=== PATIENT | male | born 1940 | race Caucasian/White ===

== ENCOUNTER 2018-12-17 19:20 | Inpatient (IN) ==
[2018-12-17 20:29] LABS: URINE SOURCE CLEAN CATCH
[2018-12-17 20:37] LABS: BASO# 0.01 X1000 (0.0-0.2); BASO% 0.1 % (0.0-0.8); EOS# 0.14 X1000 (0.0-0.7); EOS% 1.9 % (0.0-10.0); HEMATOCRIT 34.9 % (42.0-52.0); HEMOGLOBIN 11.8 g/dL (14.0-18.0); IMM GRAN# 0.02 X1000 (0.0-0.04); IMM GRAN% 0.3 % (0.0-0.5); LYMPH% 16.3 % (20.5-51.1); MCH 34.8 PG (27-31); MCHC 33.8 g/dL (33-37); MCV 102.9 FL (81-99); MONO# 0.52 X1000 (0.11-0.59); MONO% 7.1 % (1.7-9.3); MPV 9.6 FL (7.4-10.4); NEUT# 5.46 X1000 (1.4-6.5); NEUT% 74.3 % (42.2-75.2); PLT 143 X1000 (130-400); RBC 3.39 XMIL (4.7-6.1); RDW 15.7 % (11.5-14.5); WBC 7.35 X1000 (4.8-10.8)
[2018-12-17 20:39] LABS: BILIRUBIN URINE NEGATIVE (NEGATIVE); BLOOD URINE NEGATIVE (NEGATIVE); COLOR YELLOW; GLUCOSE URINE NEGATIVE (NEGATIVE); KETONE URINE NEGATIVE (NEGATIVE); LEUKOCYTES URINE NEGATIVE (NEGATIVE); NITRITE URINE NEGATIVE (NEGATIVE); PH URINE 5.5; PROTEIN URINE 30 mg/dL (NEGATIVE); SP GRAVITY URINE 1.008; TURBIDITY URINE CLEAR (CLEAR); UR EPITHELIAL CELLS <10 /HPF (<10); URINE BACTERIA NEGATIVE /HPF; URINE RBC <10 /HPF (<10); URINE WBC <10 /HPF (<10); UROBILINOGEN URINE NORMAL (NORMAL)
[2018-12-17 20:52] LABS: POTASSIUM 5.3 mmol/L (3.5-5.1)
[2018-12-17 20:53] LABS: ALB/GLOB RATIO 1.3; ALBUMIN 4.3 g/dL (3.5-5.0); CALCIUM 9.1 mg/dL (8.8-10.2); CREATININE 1.3 mg/dL (0.7-1.2); TOTAL BILIRUBIN 0.39 mg/dL (0.20-1.00); TOTAL PROTEIN 7.7 g/dL (6.3-8.3)
--- NOTE | 2018-12-18 00:05 | PROVIDER DOCUMENTATION ---
This chart was entered by Jennifer Andrade Scribe, acting as scribe for Renu Francois MD. HPI-Musculoskeletal Pain/Inj - GENERAL Chief Complaint: Weakness Stated Complaint: EXTREMITY PAIN Time Seen by Provider: 12/17/18 22:10 Source: patient, family - HX OF PRESENT ILLNESS-MUSKULOSKELTAL Nature of Presenting Problem: 78 yom presents to er w/family at bedside w/cc weakness in bilat legs starting yest evening. pt family sts pt went to get up out of chair from seated position and had trouble getting up. During the day today was able to ambulate well but then tonight, pt had to have help getting up off toilet. pt sts weakness occurs in evening time. pt fam sts pt has had vascular studies done every 6 months at [facility], last study sts blood flow adequate. pt has also had radiofrequency ablasions done in bilat knees for arthritis related knee pain. pt denies ten to palp, headache and fall. no numbness or tingling no arm weaknes, no speech changes, no facial droop Onset/Duration: other (yest evening) Timing: still present - FALL INJURY Location of Pain/Injury: reports: none Review of Systems - Adult - REVIEW OF SYSTEMS - ADULT Constitutional: reports: no symptoms reported. denies: chills, fever, fatique Eyes: reports: no symptoms reported Ears, Nose, Mouth & Throat: reports: no symptoms reported Cardiovascular: reports: no symptoms reported Respiratory: reports: no symptoms reported Gastrointestinal: reports: no symptoms reported Genitourinary: reports: no symptoms reported Musculoskeletal: reports: see HPI, muscle weakness (bilat legs). denies: back pain, frequent leg cramps, neck pain Integumentary: reports: no symptoms reported Neurological: reports: no symptoms reported Psychiatric: reports: no symptoms reported Endocrine: reports: no symptoms reported Hematologic/Lymphatic: reports: no symptoms reported Allergic/Immunologic: reports: no symptoms reported All Other Systems: Reviewed and Negative Past History - Adult - PAST MEDICAL HISTORY-ADULT Review of Records: reports: Old Records Reviewed, Nursing Assessment Review, Medications Reviewed, Social history reviewed & non-contributory. Major Childhood Illnesses: reports: denies history Cardiovascular: reports: hyperlipidemia, HI Respiratory: reports: denies history Gastrointestinal: reports: GERD Obstetrical/Gynecological: reports: denies history Genitourinary: reports: denies history Musculoskeletal: reports: denies history Neurological: reports: denies history Endocrine/Immune: reports: Diabetes Other Conditions: reports: denies history - PRIOR SURGERIES/PROCEDURES Surgical/Procedure History: reports: appendectomy, cardiac stent - IMMUNIZATION STATUS Childhood Immunizations: See Nurse Assessment Flu Vaccine: See Nurse Assessment - FAMILY HISTORY Family History: reviewed, not pertinent - SOCIAL HISTORY Smoking: non-smoker Substance Use: alcohol Alcohol Use Frequency: occasionally Physical Exam-Injury Related - Physical Exam-Injury Related Initial Vital Signs Reviewed: Yes General Appearance: appears well, alert, no apparent distress Immobilization?: negative: backboard, C-collar Eyes: PERRL/EOMI, pink conjunctivae Head, Ears, Nose, Mouth & Throat: normocephalic/atraumatic, moist mucous membranes, normal ENT inspection Neck: non-tender, full range of motion, supple, normal inspection Respiratory: chest non-tender, lungs clear, normal breath sounds Cardiovascular: normal peripheral pulses, regular rate, rhythm Chest/Breast: deferred Peripheral Pulses: radial (R): 2+, radial (L): 2+ Abdominal Exam: normal bowel sounds, non tender, soft Male Genitalia: deferred Rectal Exam: deferred Hemoccult Exam: deferred Lymphatic: no adenopathy Back Exam: no CVA tenderness, no vertebral tenderness, other (ten to palp SI joint left side). negative: normal inspection, CVA tenderness, decreased range of motion, ecchymosis Extremity: normal range of motion, normal inspection, no pedal edema, no calf tenderness, normal capillary refill, other (NVI bilat legs). 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 negative: motor weakness, sensory deficit Psych/Mental Status: normal mood/affect, normal thought content, normal thought process, oriented x 3 - Glascow Coma Score Best Eye Response (Freeman): (4) open spontaneously Best Verbal Response (Freeman): (5) oriented Best Motor Response (Zhang): (6) obeys commands Zhang Total: 15 Progress - PLAN OF CARE/RESULTS Progress/Plan/Lab Results: Vital Signs - 8 hr 12/17/18 19:36 Temperature 98.3 F Pulse Rate 60 Respiratory Rate 20 Blood Pressure 168/69 O2 Sat by Pulse Oximetry 94 L Laboratory Results - last 24 hr 12/17/18 12/17/18 12/17/18 20:12 20:15 20:15 WBC 7.35 RBC 3.39 L Hgb 11.8 L Hct 34.9 L MCV 102.9 H MCH 34.8 H MCHC 33.8 RDW Std Deviation 15.7 H Plt Count 143 MPV 9.6 Immature Gran % (Auto) 0.3 Neut % (Auto) 74.3 Lymph % (Auto) 16.3 L Rawlins % (Auto) 7.1 Eos % (Auto) 1.9 Baso % (Auto) 0.1 Immature Gran # (Auto) 0.02 Neut # (Auto) 5.46 Lymph # (Auto) 1.20 Rawlins # (Auto) 0.52 Eos # (Auto) 0.14 Baso # (Auto) 0.01 Sodium 140 Potassium 5.3 H Chloride 104 Carbon Dioxide 24 L Anion Gap 12 BUN 20 Creatinine 1.3 H Estimated GFR/1.73 m2 53 BUN/Creatinine Ratio 15 Glucose 140 H POC Glucose 136 H Calculated Osmolality 284 Calcium 9.1 Total Bilirubin 0.39 AST 20 ALT 23 Alkaline Phosphatase 98 Troponin T Total Protein 7.7 Albumin 4.3 Globulin 3.4 Albumin/Globulin Ratio 1.3 Urine Source Urine Color Urine Turbidity Urine pH Ur Specific [place] Urine Protein Ur Glucose (Stick) Ur Ketones (Stick) Urine Blood Urine Nitrite Urine Bilirubin Urobilinogen Dipstick Urine Leukocytes Urine WBC (Auto) Urine RBC (Auto) U Epithel Cells (Auto) Urine Bacteria (Auto) 12/17/18 12/17/18 20:15 20:15 WBC RBC Hgb Hct MCV MCH MCHC RDW Std Deviation Plt Count MPV Immature Gran % (Auto) Neut % (Auto) Lymph % (Auto) [place] % (Auto) Eos % (Auto) Baso % (Auto) Immature Gran # (Auto) Neut # (Auto) Lymph # (Auto) Rawl[place] # (Auto) Eos # (Auto) Baso # (Auto) Sodium Potassium Chloride Carbon Dioxide Anion Gap BUN Creatinine Estimated GFR/1.73 m2 BUN/Creatinine Ratio Glucose POC Glucose Calculated Osmolality Calcium Total Bilirubin AST ALT Alkaline Phosphatase Troponin T < 0.010 Total Protein Albumin Globulin Albumin/Globulin Ratio Urine Source CLEAN CATCH Urine Color YELLOW Urine Turbidity CLEAR Urine pH 5.5 Ur Specific [place] 1.008 Urine Protein 30 A Ur Glucose (Stick) NEGATIVE Ur Ketones (Stick) NEGATIVE Urine Blood NEGATIVE Urine Nitrite NEGATIVE Urine Bilirubin NEGATIVE Urobilinogen Dipstick NORMAL Urine Leukocytes NEGATIVE Urine WBC (Auto) <10 Urine RBC (Auto) <10 U Epithel Cells (Auto) <10 Urine Bacteria (Auto) NEGATIVE Orders Category Date Time Status CT HEAD W/O CONTRAST [CT] Stat Exams 12/17/18 22:[address] LUMBAR SPINE W/O CONTRAST [CT] Stat Exams 12/17/18 22:00 Taken CBC WITH DIFF [HEME] Stat Lab 12/17/18 20:15 Completed COMPREHENSIVE METABOLIC PANEL [CHEM] Stat Lab 12/17/18 20:15 Completed TROPONIN T Stat Lab 12/17/18 20:15 Completed UA NIMS W/REFLEX CULT [URINALYSIS] Stat Lab 12/17/18 20:15 Completed EKG [EKG] Stat Ther 12/17/18 20:06 Ordered Leg weakness without focal neurological findings on exam will further evaluate for cause of weakness including but not limited to cva, tia, uti, acs, deh ydration, electrolyte imbalance, spinal cord compression, infectious process Result Diagrams: 12/17/18 20:15 12/17/18 20:15 - REASSESSMENT Reassessment #1 Status: other (ED work up largely unremarkable for acute causes of weakness. Attempted trial of ambulation in the ED and pt unable to ambulate and very unsteady even with standing. Will admit for further evaluation and treatment. Discussed case with Dr. Gomez, Hospitalist, who will see and admit pt.) - EKG 1 Time of EKG reading by physician:: 20:20 EKG Read and Signed by:: Renu Francois EKG Interpretation (*Must complete 3 of following elements*): Abnormal Rate: 77 Rhythm: Atrial paced rhythm w/prolonged av conduction QRS: RBB IN Interval: prolonged ST Wave: normal Departure - Departure Date of Disposition Decision: 12/17/18 Time of Disposition Decision: 23:51 DIAGNOSIS: Weakness Disposition: ADMITTED INPATIENT 09 Certified Medical Emergency: Emergent Condition: Fair Referrals and Follow-Ups: Graham Nuñez MD [Primary Care Provider] - - Critical Care Note This patient required my direct & personal management of CC.: No Attestation - Physician/ SEBAS Attestation Patient care was provided by Advanced Practice Provider:: No The physician spent face to face time with patient:: Yes Advanced Practice Provider documentation review:: Supervising physician onsite and consulted in the evaluation and care of this patient. The physician did have a face to face encounter with the patient. This chart was documented by the indicated scribe, (Jennifer Andrade Scribe) and accurately reflects the services I performed and decisions made by me, Renu Francois MD, as attested by the provider's signature.
--- NOTE | 2018-12-18 01:07 | HISTORY AND PHYSICAL ---
PRIMARY CARE PHYSICIAN: Dr. Nuñez. CHIEF COMPLAINT: Weakness, could not ambulate. HISTORY OF PRESENTING ILLNESS: The patient is a 78-year-old male with a history of diabetes mellitus type 2, hypertension, DVT, coronary disease and hyperlipidemia who had presented to the emergency department with several days history of worsening weakness such that he could not ambulate. The patient states that he was not able to get out of his chair and put any weight on his legs. He was evaluated in the emergency department, his workups so far have been negative; however, due to his presenting symptoms we will place him for observation for further evaluation and management. At the time of my examination the patient denied any headache, fever, chills, chest pain, shortness of breath, hemoptysis or any weight changes, but complained of lower extremity weakness. PAST MEDICAL HISTORY: Includes diabetes mellitus type 2, hypertension, left DVT, coronary disease, peripheral arterial disease, hyperlipidemia. PAST SURGICAL HISTORY: Pacemaker, coronary stent, cataract surgery. ALLERGIES: No known drug allergies. CURRENT MEDICATIONS: Include Norvasc 5 mg p.o. daily, carvedilol 3.125 mg p.o. b.i.d., metformin 500 mg p.o. daily, pravastatin 40 mg p.o. daily, ramipril 5 mg p.o. daily, warfarin 5 mg p.o. at bedtime. SOCIAL HISTORY: He is a former smoker. No history of alcohol or illicit drug use. FAMILY HISTORY: Positive for coronary disease in father. REVIEW OF SYSTEMS: Fourteen point review of system is as in the HPI. Other systems negative. PHYSICAL EXAMINATION: GENERAL: Cooperative friendly male. He is resting more comfortably now. VITAL SIGNS: Temperature 98.3 degrees, pulse 60, respirations 20, blood pressure 168/69. HEENT: Atraumatic and normocephalic. Extraocular movements intact. PERRLA. NECK: Supple. CHEST: Clear to auscultation. CARDIOVASCULAR: Regular rate and rhythm. ABDOMEN: Soft. Positive bowel sounds. EXTREMITIES: With +1 edema. NEUROLOGIC: He is awake, alert and oriented x3. Strength is 5/5 in all extremities. Speech is intact. GENITOURINARY: No bladder distention. SKIN: Warm. LABORATORIES AND STUDIES: WBC 7.35, hemoglobin 11.8, hematocrit 34.9, platelets 143,000. Sodium 140, potassium 5.3, chloride 104, CO2 is 24, BUN is 20, creatinine is 1.3, glucose 140. ASSESSMENT: This is a 78-year-old male with a history of diabetes mellitus type 2, hypertension, coronary disease, deep venous thrombosis and hyperlipidemia who presented to the emergency department with several days history of worsening weakness. He was evaluated in the emergency department and his workup so far has been negative; however, due to his presenting symptoms we will place him for observation for further evaluation and management. 1. Generalized weakness. 2. Diabetes mellitus type 2. 3. Hypertension. 4. Hyperlipidemia. PLAN: 1. We will admit the patient to the medical floor with telemetry. 2. Continue with supportive treatment. We will give the patient adequate pain control. 3. We will consult Physical Therapy. 4. Put the patient on glycemic protocol with sliding scale insulin regimen. 5. Monitor blood pressure. Resume antihypertensive agent. 6. Restart his other home medications. 7. The patient is already on Coumadin and that will suffice for DVT prophylaxis. 8. We will continue to follow, reassess and make further recommendation based on the patient's clinical course. cc: Dash Gomez MD
[2018-12-18 05:36] LABS: INR 1.62; PROTIME 20.5 Seconds (11.0-16.0)
--- NOTE | 2018-12-18 05:39 | Diag Imaging Result Doc PS360 ---
EXAM: CT HEAD W/O CONTRAST HISTORY: BL LE weakness TECHNIQUE: CT head without contrast COMPARISON: None. FINDINGS: No parenchymal hemorrhage. No epidural or subdural hematoma. No subarachnoid hemorrhage. Mild atrophy with chronic microvascular ischemic changes. No mass identified on this noncontrasted exam. No hydrocephalus. No skull fracture. IMPRESSION: 1.No hemorrhage 2.Mild atrophy with mild chronic microvascular ischemic changes 3.A preliminary report was given at 11:31 PM on 12/17/2018 This exam was performed using automated exposure control, adjustment of mA or kV according to patient size, and/or use of iterative reconstruction technique. Electronically signed by Lucien Villa 12/18/2018 5:36 AM
--- NOTE | 2018-12-18 05:45 | Diag Imaging Result Doc PS360 ---
EXAM : CT LUMBAR SPINE W/O CONTRAST HISTORY: back pain with leg weakness TECHNIQUE: CT lumbar spine without contrast COMPARISON: None. FINDINGS: Mild scoliosis in the mid lumbar spine. Mild compression fracture to the L3 vertebra. No other compression fracture. No subluxation. The age of the L3 compression is indeterminate. Bulging disc and facet hypertrophy results in moderate spinal stenosis at L2-3. Prominent degenerative bone spurs with a vacuum disc. Bulging disc and facet hypertrophy results in moderate spinal stenosis at L3-4. Prominent degenerative bone spurs with a vacuum disc. Mild bulging discs and facet hypertrophy results in [id number] spinal stenosis at L4-5. There is disc space narrowing and a vacuum disc at L5-S1. No disc herniation identified. There is a 4.0 cm abdominal aortic aneurysm with a short aortic iliac graft. IMPRESSION: Mild age-indeterminate L3 compression fracture. Multilevel degenerative changes and bulging discs as described. A preliminary report was given at 11:27 PM 12/17/2018 This exam was performed using automated exposure control, adjustment of mA or kV according to patient size, and/or use of iterative reconstruction technique. Electronically signed by Lucien Villa 12/18/2018 5:42 AM
[2018-12-18] MEDS: HUMULIN R SUBQ SCH ×4 (06:55→23:26)
--- NOTE | 2018-12-18 07:06 | EKG Report ---
Test Performed on : 12/17/2018 8:19:46 PM Test Reason : WEAKNESS Blood Pressure : / mmHG Vent. Rate : 077 BPM Atrial Rate : 076 BPM P-R Int : 320 ms QRS Dur : 136 ms QT Int : 386 ms P-R-T Axes : 000 -27 023 degrees QTc Int : 436 ms Atrial-paced rhythm with prolonged AV conduction Right bundle branch block Abnormal ECG When compared with ECG of 24-SEP-2010 20:28, Electronic atrial pacemaker has replaced Sinus rhythm. Nonspecific T wave abnormality now evident in Anterior leads Unconfirmed Result
[2018-12-18] MEDS: COUMADIN PO SCH (23:25)
[2018-12-18] MEDS: TYLENOL PO SCH (23:25)
[2018-12-18] MEDS: GLUCOPHAGE XR PO SCH (23:25)
[2018-12-18] MEDS: PRAVACHOL PO SCH (23:25)
[2018-12-18] MEDS: COREG PO SCH (23:25)
[2018-12-19] MEDS: HUMULIN R SUBQ SCH ×4 (06:14→21:25)
[2018-12-19 07:53] LABS: BASO# 0.01 X1000 (0.0-0.2); BASO% 0.2 % (0.0-0.8); EOS# 0.22 X1000 (0.0-0.7); EOS% 3.7 % (0.0-10.0); HEMATOCRIT 38.7 % (42.0-52.0); HEMOGLOBIN 13.2 g/dL (14.0-18.0); LYMPH# 1.25 X1000 (1.2-3.4); LYMPH% 20.9 % (20.5-51.1); MCH 35.1 PG (27-31); MCHC 34.1 g/dL (33-37); MCV 102.9 FL (81-99); MONO# 0.73 X1000 (0.11-0.59); MONO% 12.2 % (1.7-9.3); MPV 9.8 FL (7.4-10.4); NEUT# 3.78 X1000 (1.4-6.5); PLT 146 X1000 (130-400); RBC 3.76 XMIL (4.7-6.1); RDW 15.6 % (11.5-14.5); WBC 5.99 X1000 (4.8-10.8)
[2018-12-19 08:05] LABS: INR 1.21; PROTIME 16.3 Seconds (11.0-16.0)
[2018-12-19 08:14] LABS: CALCIUM 9.3 mg/dL (8.8-10.2); CREATININE 1.3 mg/dL (0.7-1.2); POTASSIUM 4.9 mmol/L (3.5-5.1)
[2018-12-19] MEDS: ALTACE PO SCH (10:09)
[2018-12-19] MEDS: NORVASC PO SCH (10:09)
[2018-12-19] MEDS: COREG PO SCH ×2 (10:09→21:24)
[2018-12-19] MEDS: GLUCOPHAGE XR PO SCH ×2 (10:09→21:25)
[2018-12-19] MEDS: TYLENOL PO SCH (21:25)
[2018-12-19] MEDS: COUMADIN PO SCH (21:25)
[2018-12-19] MEDS: PRAVACHOL PO SCH (21:25)
--- NOTE | 2018-12-19 22:28 | PROGRESS NOTE ---
DATE: 12/19/2018 SUBJECTIVE: A 78-year-old, white male, admitted to the hospital yesterday on 12/18 with sudden weakness of legs, unable to walk, falling down. He is very poor historian. The patient had a workup done. Family was at bedside. I do not see any definitive weakness. The patient has a CT of head, CT of the lumbar spine. PHYSICAL EXAMINATION: Vital Signs: Temperature is 98.2, pulse 96, blood pressure is 131 x 55, 94% on room air. I's and O's -1.785. HEENT: He is drooling saliva Chest: Persistent cough. Chest is clear. Heart: Sounds are regular. Abdomen: Belly is soft, nontender. Extremities: Decreased pulses in both feet. No signs of gangrene. Chronic venous stasis changes noted in both legs. Neurologic: Definitely no neurological deficits noted. INVESTIGATIONS: CBC: White cell count 5.9, hematocrit 38, platelets 146. PT 16, INR 1.2. Sodium 139, potassium 4.9, chloride 101, BUN 20, creatinine 1.3, glucose 223. CK was normal. Vitamin D 27.1. Urinalysis is clear. CT lumbar spine, L3 compression fracture, bulging disk, 4.8 cm abdominal aortic aneurysm with aortoiliac graft. EKG right bundle branch block, normal sinus. ASSESSMENT AND PLAN: 1. Weakness in both legs. Not able to ambulate. No obvious deficits. He has history of peripheral arterial disease on the right leg. We will repeat the arterial flow studies. 2. Abdominal aortic aneurysm 4.0 cm. 3. Vitamin D deficiency on replacement therapy. 4. Coronary artery disease, stable. 5. Type 2 diabetes. Metformin 500 p.o. b.i.d. 6. Hyperlipidemia. Pravachol 40 daily. 7. Paroxysmal atrial fibrillation, status post cardioversion; status post pacemaker in 2018, on Cordarone therapy and Coumadin. 8. Chronic deep vein thrombosis, on Coumadin 5 mg daily. 9. History of osteoarthritis on the right knee. 10. Deafness on hearing aids. 11. Chronic venous stasis dermatitis on compression stockings. 12. History of peripheral arterial disease with occluded iliac stents on the right side. We will follow up on LIZZIE. Discussed with the family at bedside. LEVEL OF DOCUMENTATION: 35 minutes. cc: Javi Nuñez MD
[2018-12-20] MEDS: HUMULIN R SUBQ SCH ×4 (06:18→21:35)
[2018-12-20 07:42] LABS: INR 1.27; PROTIME 16.9 Seconds (11.0-16.0)
[2018-12-20 07:54] LABS: HEMOGLOBIN A1C 5.8 % (4.8-6.0)
[2018-12-20 07:57] LABS: CALCIUM 9.2 mg/dL (8.8-10.2); CREATININE 1.4 mg/dL (0.7-1.2); POTASSIUM 4.7 mmol/L (3.5-5.1)
[2018-12-20 08:13] LABS: FREE T4 1.6 ng/dL (0.93-1.70); TSH 0.71 uIUmL (0.27-4.20)
[2018-12-20] MEDS: NORVASC PO SCH (10:14)
[2018-12-20] MEDS: COREG PO SCH ×2 (10:15→21:35)
[2018-12-20] MEDS: CORDARONE PO SCH (10:15)
[2018-12-20] MEDS: ALTACE PO SCH (10:16)
[2018-12-20] MEDS: GLUCOPHAGE XR PO SCH (10:20)
[2018-12-20] MEDS: NS 1,000 ML IV SCH ×2 (10:29→21:35)
--- NOTE | 2018-12-20 13:41 | Diag Imaging Result Doc PS360 ---
CT ANGIOGRAM AORTA W/RUNOFF - 12/20/2018 INDICATION: PAD TECHNIQUE: Axial CT images were obtained after administering intravenous contrast. Three-dimensional angiographic images were generated. COMPARISON: None FINDINGS: There is advanced COPD in the lung bases. There is severe diverticulosis all throughout the colon. There is a fusiform distal abdominal aortic aneurysm measuring 3.8 x 3.8 cm. There are kissing stents in the common iliac arteries. On the right side this is occluded along with the common iliac artery. On the left side this is patent. On the right side, there is occlusion of the common iliac artery. There is reconstitution of the internal and external iliac arteries likely through lumbosacral collaterals. The femoral artery systems are patent. The popliteal artery is patent. There is heavy vascular calcification of the posterior tibial artery which is stenotic by about 40%. Nevertheless there is a three-vessel runoff to the foot. There is a moderately large right knee joint effusion. On the left side, the common, internal and external iliac arteries are patent. The femoral arteries are patent. The popliteal artery is patent. There is heavy calcified vascular disease of the posterior tibial artery which is moderately narrowed. There is a three-vessel runoff to the left foot. There is a moderate left knee joint effusion as well. There is indeterminate vascular calcification throughout the veins of the lower extremities as well as the iliac veins, mainly the left external iliac vein. The IVC is extremely collapsed. Vascular calcification within veins is very unusual and likely to represent chronic deep venous thrombosis. IMPRESSION: 1. There are kissing stents in the aortic bifurcation. On the right side, the stent is completely occluded. There is collateral filling of the internal and external iliac arteries and flow to the right foot. 2. Significant vascular disease of both posterior tibial arteries, otherwise very little disease of the legs and calves. 3. There is probably diffuse chronic deep venous thrombosis of all the major veins of the lower extremities and possibly the pelvis as well. This exam was performed using automated exposure control, adjustment of mA or kV according to patient size, and/or use of iterative reconstruction technique Electronically signed by Rubin Daniels 12/20/2018 1:38 PM
[2018-12-20] MEDS: VITAMIN D PO SCH ×2 (14:59→15:00)
--- NOTE | 2018-12-20 20:14 | VASCULAR LAB ---
PROCEDURE NAME: Arterial Bilateral Legs - 12/19/2018 REQUESTING PHYSICIAN: Nereyda Nuñez MD SIGNAL TIMER: Padmini. INDICATIONS: Pain in bilateral lower extremities, right worse than left. FINDINGS: Segmental pressures are as follows: Right brachial 168, left 155, right proximal thigh 98, left 187, right distal thigh 105, left 166, right popliteal 129, left 173, right dorsalis pedis 267, left 288, right posterior tibial 62, left 288, right great toe 68, left 117, right LIZZIE 1.59, left 1.70, right TBI 0.40, left 0.70. Waveform analysis: Waveforms appear to be almost monophasic even starting in the level of the high proximal thigh on the right side, but there is at least some pulsatility noted to the toes. The left side is intact to the level of toes. INTERPRETATION: Likely proximal disease either common iliac or external iliac on the right side. The patient's ABIs are likely falsely elevated. The patient would benefit from a CT angiography to delineate the anatomy better given the proximal disease. cc: MD Javi Ibanez MD
--- NOTE | 2018-12-20 20:52 | PROGRESS NOTE ---
DATE: 12/20/2018 SUBJECTIVE: The patient is still with some weakness mostly on the right side, decreased pulses and no other symptoms. OBJECTIVE: Vital signs: Temperature is 97 degrees, pulse 62, blood pressure 140/54. HEENT Exam: Within normal limits. Neck: Supple. Chest: Clear. Cardiovascular: Heart sounds are regular. Abdomen: Belly is soft, nontender. No neurological deficits. DIAGNOSTICS: Arterial flow studies are looked at. There is high-grade obstruction. LIZZIE is high. PT is 16, INR 1.2, creatinine 1.4. SMA 7 is normal. Vitamin D is still low. Thyroid function tests were normal. ASSESSMENT AND PLAN: 1. Bilateral leg weakness, unable to walk. The right is worse than the left side consistent with occluded stent and CT arteriogram with runoff. Will get gentle IV fluids and also check the CK. 2. Paroxysmal atrial fibrillation on Cordarone and warfarin. 3. Hypertension on amlodipine and Coreg. 4. Vitamin D deficiency on replacement. 5. Vitamin B12 deficiency on replacement. 6. Type 2 diabetes on metformin. 7. Hyperlipidemia on Pravachol 8. Consultation with Dr. Pal about the peripheral artery disease in the right leg. Continue the physical therapy. Discussed with the family at bedside. Apparently, patient had workup done in [place]. I do not have the details. Anyhow, we will ask for Dr. Pal's opinion. LEVEL OF DOCUMENTATION: 25 minutes. cc: Javi Nuñez MD
[2018-12-20] MEDS: TYLENOL PO SCH (21:35)
[2018-12-20] MEDS: PRAVACHOL PO SCH (21:35)
[2018-12-20] MEDS: COUMADIN PO SCH (21:35)
[2018-12-21] MEDS: HUMULIN R SUBQ SCH ×4 (06:53→20:38)
[2018-12-21] MEDS: ALTACE PO SCH (10:50)
[2018-12-21] MEDS: VITAMIN D PO SCH (10:51)
[2018-12-21] MEDS: CORDARONE PO SCH (10:52)
[2018-12-21] MEDS: COREG PO SCH ×2 (10:52→20:37)
[2018-12-21] MEDS: NORVASC PO SCH (10:53)
[2018-12-21] MEDS: NS 1,000 ML IV SCH (10:53)
--- NOTE | 2018-12-21 13:14 | PROGRESS NOTE ---
DATE: 12/21/2018 SUBJECTIVE: The patient says he still gets some pain in his legs, especially his right leg. We know that he has some blockage of the stent in his femoral artery. OBJECTIVE: Vital Signs: Blood pressure 165/57, respirations 16, pulse 61, temperature 97.9 degrees Fahrenheit. HEENT: Normocephalic. EOMs intact. PERRLA. Throat clear. Lungs: Clear to auscultation and percussion without rhonchi, rales, or wheezes. Heart: Regular rate and rhythm without murmurs, gallops, friction rubs. Abdomen: Soft. Active bowel sounds. No organomegaly or tenderness. Cannot really feel pulses in his feet. ASSESSMENT: Peripheral vascular disease. PLAN: Continue support. Dr. Pal, vascular surgeon, will see him. cc: MD Javi Dunn Jr, MD
[2018-12-21] MEDS: COUMADIN PO SCH (20:38)
[2018-12-21] MEDS: PRAVACHOL PO SCH (20:39)
[2018-12-21] MEDS: TYLENOL PO SCH (20:39)
[2018-12-22] MEDS: NS 1,000 ML IV SCH ×2 (00:43→11:01)
[2018-12-22] MEDS: HUMULIN R SUBQ SCH ×4 (06:49→21:52)
[2018-12-22] MEDS: ALTACE PO SCH (11:00)
[2018-12-22] MEDS: COREG PO SCH ×2 (11:01→21:52)
[2018-12-22] MEDS: NORVASC PO SCH (11:01)
[2018-12-22] MEDS: VITAMIN D PO SCH (11:01)
[2018-12-22] MEDS: CORDARONE PO SCH (11:01)
--- NOTE | 2018-12-22 11:39 | PROGRESS NOTE ---
DATE: 12/22/2018 SUBJECTIVE: The patient says he feels about the same. He has some aching in his right leg mostly. OBJECTIVE: Vital Signs: Blood pressure 132/53, respirations 18, pulse 65, temperature 98 degrees Fahrenheit, oxygen saturation 96% on room air. HEENT: Normocephalic. EOMs intact. PERRLA. Throat clear. Lungs: Clear to auscultation and percussion without rhonchi, rales, or wheezes. Heart: Regular rate and rhythm without murmurs, gallops, friction rubs. He has a history of atrial fibrillation, but he certainly sounds regular right this minute. Abdomen: Soft, active bowel sounds. No organomegaly or tenderness. Decreased pulses in lower extremities. The patient does have occluded stent to femoral artery on the right to be evaluated by Surgery. ASSESSMENT: Peripheral vascular disease with occlusion right femoral artery. PLAN: Continue support. Vascular Surgery to see. cc: MD Javi Dunn Jr, MD
--- NOTE | 2018-12-22 16:05 | GENERAL SURGERY CONSULTATION ---
DATE: 12/22/2018 REASON FOR CONSULTATION: I have been asked to see Mr. Franco regarding his iliac occlusion. HISTORY OF PRESENT ILLNESS: Mr. Franco is a 78-year-old, apparently lives alone, who a few days prior became so weak he could not bear any weight on his legs. He was sent to the emergency department for evaluation. He has known right iliac occlusion and has been followed by Dr. Dumont at [facility]. No surgery has been recommended to him. Prior to this episode where he could not walk. He had been having some right leg claudication, but he was able to manage around his house. PAST MEDICAL HISTORY: Pertinent for type 2 diabetes, hypertension, history of DVT on the left, coronary disease, previous peripheral arterial disease with kissing stents 14 years ago and hyperlipidemia. PAST SURGICAL HISTORY: Previous surgery also includes a coronary stent and a pacemaker. MEDICATIONS: Listed. ALLERGIES: He has no known drug allergies. SOCIAL HISTORY: He is a former smoker. Denies alcohol or drug use. He does live alone. He does have an attentive daughter in town. FAMILY HISTORY: Pertinent for coronary disease. REVIEW OF SYSTEMS: Otherwise negative. PHYSICAL EXAMINATION: Vital signs: Afebrile. Heart rate 78, blood pressure 133/52. Neck: No carotid bruits. Lungs: Bilateral breath sounds. Heart: Regular rate and rhythm. Abdomen: Soft. Extremities: He has a left femoral pulse but no right femoral pulse. He does have a 1.5+ pedal pulse on the left, none on the right. No peripheral edema. Venous stasis dermatitis changes are noted on his lower legs. ASSESSMENT: Chronic right iliac occlusion. Yes, this will cause him to claudicate, but he was managing that. He has been followed by Dr. Dumont for this for a long time, and no surgery has been recommended. The episode of weakness where both legs did not hold him up was not related to his right iliac occlusion. I looked at his waveforms, and he has pulsatile flow in both legs. I do not recommend any intervention to his right iliac as this will not resolve the weakness that he suffered 3 or 4 days ago. cc: MD Javi Arriaga MD
[2018-12-22] MEDS: TYLENOL PO SCH (21:52)
[2018-12-22] MEDS: PRAVACHOL PO SCH (21:52)
[2018-12-22] MEDS: COUMADIN PO SCH (21:52)
[2018-12-23] MEDS: NS 1,000 ML IV SCH ×2 (01:12→16:34)
[2018-12-23] MEDS: HUMULIN R SUBQ SCH ×4 (06:05→21:28)
[2018-12-23] MEDS: ALTACE PO SCH (10:02)
[2018-12-23] MEDS: COREG PO SCH ×2 (10:04→21:27)
[2018-12-23] MEDS: CORDARONE PO SCH (10:04)
[2018-12-23] MEDS: NORVASC PO SCH (10:11)
[2018-12-23] MEDS: GLUCOPHAGE XR PO SCH ×2 (10:11→21:27)
[2018-12-23] MEDS: VITAMIN D PO SCH (10:12)
--- NOTE | 2018-12-23 15:02 | CONSULTATION ---
DATE OF CONSULTATION: 12/23/2018 Mr. Franco is 78 years old and he reports recent fairly sudden onset of right more than left leg weakness. He reports having a sense of weakness in his right leg and a little bit of weakness in both legs chronically attributed to peripheral vascular disease. He has documented occlusion of the right iliac artery which he reports is chronic, managed with stenting about 14 years ago. He reports sitting on the toilet 4 days ago and when he attempted to get up, he seemed suddenly weak in both legs, worse on the right to the point he could not safely stand without assistance. He did not lose bowel or bladder control. He did not lose consciousness. He did not notice new weakness in the arms. There was no slurred speech or vision disturbance. He presented to the hospital and was admitted. He believes his right leg is slowly getting stronger, but is not yet back to baseline. Workup here includes vascular study showing chronic occluded right iliac. Noncontrast CT of the head showed relatively mild ischemic white matter changes, also chronic with nothing acute. Blood sugars were initially 220s but mostly 100s since admission. CK was 89. TSH and free T4 were normal. He has been afebrile. Systolic blood pressures have ranged 90s to 170s. There is reported past history of type 2 diabetes mellitus, hypertension, ischemic heart disease, dyslipidemia, DVT. He is a former smoker. On exam, Mr. Franco is awake, alert, attentive. Speech is not significantly dysarthric. Language function is intact on brief bedside testing. Memory of recent and remote events is good. Head and neck are unremarkable. Visual kamara are full to confrontational finger counting. Strength is normal in the arms. He has good power throughout in the left leg. I can overcome the right iliopsoas. I could not find any other definite weakness in the right leg. Limb tone is symmetric. Reflexes are absent at the knees and ankles bilaterally, 1+ symmetrically at the wrists. Plantar response is silent bilaterally. He has a stocking pattern of sensory loss bilaterally, similar distally on the left and right, but sometimes he reported more pinprick dullness over the mid portion of the right lower leg than on the left. Proprioception is normal at the great toe MTP joint bilaterally. Straight leg raising is negative bilaterally. Hip rotation is unremarkable bilaterally. I did not test his gait. IMPRESSION: 1. Isolated right iliopsoas weakness, uncertain etiology. His report of sudden onset is not typical. He could have chronic ischemic femoral neuropathy but I could not find definite quadriceps weakness. He could have diabetic radiculoneuritis, but he reports blood sugars have generally been well controlled. He does not report trauma or sudden back pain or radicular pain. He did not have incontinence. I would like to have lumbar MRI, but pacemaker excludes that. Will order lumbar CT and further plans will depend on that report and on his clinical course. We might need to consider EMG. 2. There is clinical evidence of peripheral neuropathy, presumed diabetic neuropathy, probably not sufficient to account for the recent history. I encouraged him to continue aggressive management of blood sugar. 3. He has risk factors for cerebrovascular ischemic problems and there are some chronic micro ischemic changes on CT, but I do not think his right leg weakness is due to acute cerebral infarction. Thanks for asking Neurology to see Mr. Franco. cc: MD Javi Wiley III, MD MTDD
--- NOTE | 2018-12-23 16:02 | Diag Imaging Result Doc PS360 ---
EXAM : CT LUMBAR SPINE W/O CONTRAST HISTORY: right leg weakness, rule out HNP TECHNIQUE: CT lumbar spine without contrast COMPARISON: 12/17/2018 FINDINGS: Mild scoliosis to the lumbar spine with a mild compression fracture to the L3 vertebra. This compression fracture was present on the prior exam. No other fracture. Degenerative changes are similar to the prior study. There is a small abdominal aortic aneurysm. This is similar to the prior exam. There are multilevel bulging discs and facet hypertrophy with moderate to prominent spinal stenosis at L2-3 and L3-4. There is also moderate spinal stenosis at L4-5. No definite focal herniation identified. IMPRESSION: No interval change. Spinal stenosis is most pronounced at L3-4. This exam was performed using automated exposure control, adjustment of mA or kV according to patient size, and/or use of iterative reconstruction technique. Electronically signed by Lucien Villa 12/23/2018 3:59 PM
--- NOTE | 2018-12-23 18:50 | PROGRESS NOTE ---
DATE: 12/23/2018 SUBJECTIVE: Patient's events noted. I appreciated Dr. Pal's consult. Complains of some weakness in both legs. EXAMINATION: Vital Signs: Temperature is 98 degrees, pulse is 64. Vitals are stable. General: He has some drooling noted. Chest: Clear. Heart: Sounds are regular. Abdomen: Belly is soft, nontender. Neurologic: No obvious deficits noted. ASSESSMENT: 1. CT lumbar spine showed spinal stenosis at L3-L4 and right-sided occluded stent at common iliac artery with poor runoff. 2. Vitamin D deficiency. 3. History of paroxysmal atrial fibrillation and deep venous thrombosis, on warfarin and Cordarone. 4. Hyperlipidemia, on Pravachol. CK aldolase is normal. PLAN: 1. Discontinue intravenous fluids. 2. Follow up on cardiac enzymes. CK was negative for myopathy. 3. Consider nerve conduction studies and electromyogram. 4. Consult with Dr. Braun. 5. Continue physical therapy. Consider rehabilitation placement. 6. We will discuss with the family after Dr. Braun's consult. LEVEL OF DOCUMENTATION: 25 minutes. cc: Javi Nuñez MD
[2018-12-23] MEDS: TYLENOL PO SCH (21:27)
[2018-12-23] MEDS: PRAVACHOL PO SCH (21:27)
[2018-12-23] MEDS: COUMADIN PO SCH (21:27)
[2018-12-24] MEDS: HUMULIN R SUBQ SCH ×4 (06:03→21:28)
[2018-12-24] MEDS ORDERED: VITAMIN B-12 PO SCH (09:00)
[2018-12-24] MEDS: NORVASC PO SCH (09:28)
[2018-12-24] MEDS: VITAMIN D PO SCH (09:29)
[2018-12-24] MEDS: GLUCOPHAGE XR PO SCH ×2 (09:30→21:28)
[2018-12-24] MEDS: COREG PO SCH ×2 (09:30→21:27)
[2018-12-24] MEDS: ALTACE PO SCH (09:31)
[2018-12-24] MEDS: CORDARONE PO SCH (09:31)
--- NOTE | 2018-12-24 11:54 | Diag Imaging Result Doc PS360 ---
EXAM: CHEST-PORTABLE HISTORY: Rehab placement TECHNIQUE: Chest single view COMPARISON: 01/19/2013 FINDINGS: The lungs are well expanded. The heart is not enlarged. There is a left-sided pacemaker. The vessels are not distended. There are no infiltrates. No effusion identified. IMPRESSION: No acute abnormality. Electronically signed by Lucien Villa 12/24/2018 11:52 AM
--- NOTE | 2018-12-24 15:00 | PROGRESS NOTE ---
DATE: 12/24/2018 Mr. Franco reports improved strength in the right leg. He reports he was able to walk with physical therapy assistance much greater distance today. He is having a little bit less discomfort in the back and legs today. MRI is not an option because of pacemaker. His lumbar CT showed diffuse degenerative changes and some spinal stenosis but no definite cord compression and no definite HNP. Overall, there were no new findings compared to scan done last week. From neurologic standpoint, next step would be to consider EMG study with clinical impression of diabetic peripheral neuropathy, back pain, proximal right leg weakness and question of radiculoneuritis. That can be accomplished inpatient or outpatient. There is not urgency for EMG while he is stable and improving. Thanks for asking Neurology to see Mr. Franco. cc: MD Javi Wiley III, MD MTDD
--- NOTE | 2018-12-24 19:23 | PROGRESS NOTE ---
DATE: 12/24/2018 SUBJECTIVE: The patient is a little better, no complaints. The patient was seen by Dr. Braun and he wants to do EMGs, nerve conduction as an outpatient. Chest x-ray was stable. The patient did have a bed in [facility]. EXAMINATION: Vital Signs: Temp is 97. Vitals are stable. HEENT: Within normal limits. Chest: Clear. Heart: Heart sounds are regular. Abdomen: Belly is soft, nontender. Neurologic: No neurological deficits. INVESTIGATIONS: None reported. ASSESSMENT AND PLAN: Weakness in the both legs. Combination vitamin D deficiency, neuropathy, PAD, spinal stenosis. Continue aggressive physical therapy. [facility] Home placement tomorrow, waiting for Speech evaluation. Continue present treatment. LEVEL OF DOCUMENTATION: 25 minutes. cc: Javi Nuñez MD
[2018-12-24] MEDS: COUMADIN PO SCH (21:27)
[2018-12-24] MEDS: TYLENOL PO SCH (21:27)
[2018-12-24] MEDS: PRAVACHOL PO SCH (21:28)
--- NOTE | 2018-12-24 22:48 | DISCHARGE SUMMARY ---
ADMISSION DATE: 12/21/2018 DISCHARGE DATE: DISCHARGING DIAGNOSIS: Bilateral leg weakness due to deconditioning from combination of vitamin D deficiency, peripheral neuropathy due to diabetes, chronic venous stasis dermatitis in both legs, and spinal stenosis at L3-L4. SECONDARY DIAGNOSIS: 1. Peripheral arterial disease, occluded right common iliac stents with a poor downstream. 2. Type 2 diabetes. 3. Abdominal aortic aneurysm 4 cm. 4. Subcutaneous lipoma left biceps coronary artery disease status post right coronary artery stent in circumflex. 5. Hypertension. 6. Hyperlipidemia. 7. Paroxysmal atrial fibrillation, status post cardioversion. 8. History of deep venous thrombosis in the left leg. 9. Paroxysmal atrial fibrillation status post cardioversion and pacemaker in 2018, on Cordarone. 10. Vitamin D deficiency. CONSULTS: 1. Dr. Pal. 2. Dr. Braun. PROCEDURES: 1. Lumbars spine CT, spinal stenosis, mostly pronounced L3, L4. 2. Aortogram with runoff. There are kissing stents in the aortic bifurcation. Right stent is completely occluded with collateral flow, poor downstream on the right side. 3. CT head, no hemorrhage, mild atrophy of the brain. 4. Extremity arterial flow studies, proximal disease either common iliac, external iliac on the right side. ABL falsely elevated. 5. Chest x-ray, no acute abnormality. Left-sided pacemaker present. BRIEF HISTORY: Please see the H and P that was done by hospitalist. In brief, he is a 78-year- old white gentleman, came into the hospital with weakness, not able to ambulate, falling. HOSPITAL COURSE: 1. Bilateral leg weakness, but no obvious deficits noted, it is multifactorial. CT lumbar spine showed L3-L4 spinal stenosis and mild L3 compression, but neurological exam is intact. 2. He does have occluded stent in the right side with a poor downstream, and that is not causing the weakness. 3. Vitamin D deficiency. Continue on replacement therapy. 4. It could be diabetic neuropathy, and Dr. Braun is going to do outpatient nerve conduction studies and EMG. In the meantime, patient wants to go to [facility] for rehab. 5. Rest of the hospital course was uneventful. LABS: CBC: White cell count 5.9, hematocrit 38, platelets 146,000. PT 16, INR 1.3. Sodium 140, potassium 4.7, chloride 103, BUN 28, creatinine 1.4. Glucose 111. A1c 5.8. Calcium 9.2. CK was normal. Aldolase is normal. Vitamin D on the low side. Normal thyroid function tests. DISCHARGE INSTRUCTIONS ARE FOLLOWS: 1. Coumadin 5 mg daily. Recheck the PT/INR every 2 weeks to keep around 2. Metformin 500 p.o. b.i.d., Coreg 3.125 p.o. b.i.d., amlodipine 5 mg daily, Altace 5 mg daily, Pravachol 40 daily, B12 5,000 units daily, vitamin D 50,000 once a week, and vitamin D 5000 units daily. Cordarone 200 mg daily. 2. Outpatient nerve conduction studies. 3. Since the patient has a history of pacemaker, not able to do the MRI. 4. Follow up in my office in 2 weeks. cc: MD Geraldine Clark III, MD Crystal V. Walker
[2018-12-25] MEDS: HUMULIN R SUBQ SCH ×2 (06:31→11:51)
[2018-12-25] MEDS: COREG PO SCH (09:06)
[2018-12-25] MEDS: GLUCOPHAGE XR PO SCH (09:06)
[2018-12-25] MEDS: ALTACE PO SCH (09:06)
[2018-12-25] MEDS: NORVASC PO SCH (09:06)
[2018-12-25] MEDS: CORDARONE PO SCH (09:06)
[2018-12-25] MEDS: VITAMIN D PO SCH (09:07)
[2018-12-25 12:27] VITALS: BP 127/56
== END 2018-12-25 13:06 | DRG 74 ==
LOC: ED 19:20 → EDIPHOLD 19:20 → SUATTDRO 12-18 04:20 → 3N 12-18 16:59
PROVIDERS: ADMIT Internal Medicine; ATTEND Internal Medicine
CPT/HCPCS: 70450; 71010; 71045; 72131; 75635; 80048; 80053; 81001; 82085; 82306; 82550; 82607; 82948; 83036; 84439; 84443; 84484; 85025; 85610; 93005; 93923; 97116; 97162; 97530; 99285; A9270; J7030; Q9967; XXXXX

== ENCOUNTER 2019-03-13 14:51 | Inpatient (IN) ==
[2019-03-13] MEDS ORDERED: SALINE LOCK IV FLUID XX ONE (15:27)
[2019-03-13 15:55] LABS: BASO# 0.01 X1000 (0.0-0.2); BASO% 0.2 % (0.0-0.8); EOS# 0.38 X1000 (0.0-0.7); EOS% 6.3 % (0.0-10.0); HEMATOCRIT 33.7 % (42.0-52.0); HEMOGLOBIN 11.3 g/dL (14.0-18.0); IMM GRAN# 0.02 X1000 (0.0-0.04); IMM GRAN% 0.3 % (0.0-0.5); LYMPH# 1.11 X1000 (1.2-3.4); LYMPH% 18.4 % (20.5-51.1); MCH 34.8 PG (27-31); MCHC 33.5 g/dL (33-37); MCV 103.7 FL (81-99); MONO# 0.74 X1000 (0.11-0.59); MONO% 12.3 % (1.7-9.3); MPV 10.2 FL (7.4-10.4); NEUT# 3.76 X1000 (1.4-6.5); NEUT% 62.5 % (42.2-75.2); PLT 118 X1000 (130-400); RBC 3.25 XMIL (4.7-6.1); RDW 13.5 % (11.5-14.5); WBC 6.02 X1000 (4.8-10.8)
[2019-03-13 16:11] LABS: ALB/GLOB RATIO 1.6; ALBUMIN 4.2 g/dL (3.5-5.0); CALCIUM 8.6 mg/dL (8.8-10.2); CREATININE 1.2 mg/dL (0.7-1.2); POTASSIUM 5.4 mmol/L (3.5-5.1); TOTAL BILIRUBIN 0.36 mg/dL (0.20-1.00); TOTAL PROTEIN 6.8 g/dL (6.3-8.3)
--- NOTE | 2019-03-13 16:30 | Diag Imaging Result Doc PS360 ---
KNEE 1-2 VIEWS-RIGHT - 03/13/2019 INDICATION: trauma TECHNIQUE: Two views COMPARISON: None FINDINGS: There is advanced osteoarthritis worst in the medial joint compartment. There is also significant chondrocalcinosis of the menisci. There is mild anterior knee superficial subcutaneous soft tissue swelling. No fracture or dislocation. IMPRESSION: Nonspecific anterior knee soft tissue swelling. No fracture. Electronically signed by Rubin Daniels 03/13/2019 4:28 PM
--- NOTE | 2019-03-13 16:30 | Diag Imaging Result Doc PS360 ---
CHEST-2 VIEWS - 03/13/2019 INDICATION: cough pain COMPARISON: 12/24/2018 FINDINGS: Stable left-sided dual chamber pacemaker in good position. Heart size and pulmonary vascularity is normal. No infiltrates or edema. No pneumothorax or pleural effusion. IMPRESSION: No acute disease or change from prior. Electronically signed by Rubin Daniels 03/13/2019 4:28 PM
--- NOTE | 2019-03-13 16:44 | Diag Imaging Result Doc PS360 ---
CT PELVIS W/O CONTRAST - 03/13/2019 INDICATION: trauma COMPARISON: X-rays from 03/09/2019 FINDINGS: There is a nondisplaced fracture through the right acetabular roof. This extends to the superior pubic ramus. These are not visible on the coronal views, only the sagittal and axial views. No dislocation. The left hip is intact. IMPRESSION: Nondisplaced fractures through the right acetabular roof and superior pubic ramus. These are not visible by radiographs. This exam was performed using automated exposure control, adjustment of mA or kV according to patient size, and/or use of iterative reconstruction technique Electronically signed by Rubin Daniels 03/13/2019 4:42 PM
[2019-03-13] MEDS: NS 1,000 ML IV SCH (17:06)
[2019-03-13] MEDS: DILAUDID IV PRN (19:09)
[2019-03-13] MEDS: GLUCOPHAGE XR PO SCH (20:35)
[2019-03-13] MEDS: COREG PO SCH (20:36)
--- NOTE | 2019-03-13 21:47 | HISTORY AND PHYSICAL ---
SUBJECTIVE: Family brought in my office today; he is not able to ambulate since he had a fall on Sunday. HISTORY OF PRESENT ILLNESS: He is a 78-year-old white gentleman. He had a fall at home, seen in the emergency room with right hip injury. X-rays were negative. The patient was sent home. Since then he was not ambulating. Continues to complain of pain in the right hip going to the knee, and also knee pain. He has also intermittent choking. The patient was brought in the wheelchair, not able to weight-bear. Basically admitted directly through my office to rule out fracture. I did not see any rotation of the limb, but he cannot even walk. After he came in, CT findings reported acetabular roof fracture and superior ramus fracture. Findings were discussed with the patient's family. We will consult with Orthopedics corrections unit supervisor and continue pain control. Physical therapy, possible rehab placement. As a result, hospital admission was warranted. PAST MEDICAL HISTORY: Left biceps subcutaneous lipoma; CAD, with a stent in the RCA and circumflex; type 2 diabetes; intermittent dysphagia; hypertension; hyperlipidemia; paroxysmal atrial fibrillation; bilateral iliac stents, the right one is completely closed; stasis dermatitis, left leg; peripheral vascular disease; chronic DVT in the left leg; perianal warts; abdominal aortic aneurysm, 3.7 cm. PAST SURGICAL HISTORY: Right thumb partial amputation, bilateral cataracts, GJ vagotomy, C-spine fusion, bilateral iliac stents. MEDICATIONS: Aspirin; Altace; amlodipine 5 mg daily; Coreg 3.125 p.o. b.i.d.; Glucophage 500 two once a day; Pacerone 200 mg daily; vitamin D 50,000 units once a week; Xarelto 20 mg daily. ALLERGIES: Not known. SOCIAL HISTORY: . No children. 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 Lives in [place]. No smoking, no alcohol. FAMILY HISTORY: Father of [place] at 62, mother of natural causes. HEALTH MAINTENANCE: Colonoscopy was refused. Last physical in 12/2017. Pneumococcal vaccine in 2019, flu vaccine 04/2018. REVIEW OF SYSTEMS: HEENT: No headache, no vision problem. No earache. No sore throat. Neck: No goiter. No lymphadenopathy. No bruit. Cardiopulmonary: No chest pain, shortness of breath, wheezing. Drooling of saliva. No choking spells. GI: No nausea, vomiting or abdominal pain. : No history of hesitancy, frequency, dysuria. Right hip pain going to the knee as well as right knee pain. No swelling of feet. No neurological symptoms or weakness. PHYSICAL EXAMINATION: VITAL SIGNS: On exam, temperature is 98 degrees, pulse 59, blood pressure is 167/57. GENERAL: Six feet tall, 208 pounds. HEENT: Exam within normal limits. Pupils equal and reactive to light. Drooling is decreased. NECK: Supple. No lymphadenopathy. CHEST: Bilateral air entry. No rales, no crackles or wheezing. HEART: Sounds are regular. No murmur. ABDOMEN: Belly is soft, nontender. Good bowel sounds. EXTREMITIES: Right lower extremity is not rotated. Very painful. Right knee has osteoarthritic changes. Soft tissue swelling noted in front of the knee. No ballottement noted. No obvious neurological deficits. LABORATORY DATA: CBC: White cell count 6, hematocrit 33, platelets 118,000. Sodium 139, potassium 5.4, BUN 31, creatinine 1.2, glucose 124. LFTs were normal. DIAGNOSTIC DATA: Chest x-ray: No acute change. Pelvic CT: Nondisplaced fracture, right acetabular roof, and superior ramus fracture. X-ray of the knee: Soft tissue swelling anteriorly. No fracture. ASSESSMENT AND PLAN: 1. A 78-year-old white male admitted to the hospital with right hip fracture, mostly acetabular fracture along with a superior pubic ramus. Pain control. Consult with Orthopedics corrections unit supervisor. 2. Right knee pain due to contusion, along with osteoarthritis. 3. Paroxysmal atrial fibrillation, on Cordarone and Xarelto. 4. Chronic deep venous thrombosis, on Xarelto. Discontinue the Coumadin. 5. Hypertension, on Norvasc 5 mg daily, Coreg 3.125 p.o. b.i.d. 6. Type 2 diabetes, on metformin 500 p.o. b.i.d. Continue intravenous fluids. 7. Hyperlipidemia, on pravastatin 40 daily. 8. Abdominal aortic aneurysm, 3.7 cm, stable. 9. Perianal warts, stable. 10. Right iliac stent occluded, with poor circulation in the right leg, under the care of Dr. Pal. Findings discussed with the patient. We will consult Orthopedics corrections unit supervisor. Possible rehab placement, since he is not able to ambulate at home. Ambulatory Service Representative consult. cc: Javi Nuñez MD [facility]
[2019-03-14] MEDS: NS 1,000 ML IV SCH ×2 (05:24→17:08)
[2019-03-14] MEDS: HUMULIN R SUBQ SCH ×4 (06:26→20:40)
[2019-03-14] MEDS: CORDARONE PO SCH (09:20)
[2019-03-14] MEDS: XARELTO PO SCH (09:20)
[2019-03-14] MEDS: ALTACE PO SCH (09:20)
[2019-03-14] MEDS: GLUCOPHAGE XR PO SCH ×2 (09:20→20:41)
[2019-03-14] MEDS: PRAVACHOL PO SCH (09:22)
[2019-03-14] MEDS: NORVASC PO SCH (09:22)
[2019-03-14] MEDS: COREG PO SCH ×2 (09:22→20:41)
--- NOTE | 2019-03-14 10:17 | ORTHOPAEDICS CONSULTATION ---
DATE: 03/14/2019 REASON FOR CONSULTATION: Acetabular fracture. HISTORY: Mr. Franco was seen in consultation for acetabular fracture. He is a 78-year-old gentleman who is admitted by the hospitalist. He reports sustaining a fall at home last night. He underwent a CT scan which showed nondisplaced acetabular fracture of the right pelvis. At the present time, he complains of pain and tenderness about the right hip. PAST MEDICAL HISTORY: Significant for coronary disease with stent placement, type 2 diabetes, hypertension, hyperlipidemia, atrial fibrillation, history of dermatitis and vascular disease as well as chronic DVT and a abdominal aortic aneurysm. MEDICATIONS: Are as listed by the hospital admission chart. PHYSICAL EXAM: Examination reveals some tenderness over the right hip and groin on passive motion. He is motor and sensory intact distally. There is no redness or warmth. His remaining upper extremities are atraumatic. X-RAYS: Reviewed include a CT scan of his pelvis, which shows a nondisplaced fracture through the superior pubic rami and acetabular roof. There is no evidence of hip fracture. X-rays of the knee were reviewed, which shows DJD of the knee. ASSESSMENT: Nondisplaced right acetabular fracture, PLAN: The patient can be mobilized with a walker or wheelchair, touchdown weightbearing on the right lower extremity. He can be transferred to rehab center. We will need to follow up with him in roughly 2 to 3 weeks for repeat x-rays. cc: MD Javi Bustamante MD
--- NOTE | 2019-03-14 21:42 | PROGRESS NOTE ---
DATE: 03/14/2019 SUBJECTIVE: I appreciated Dr. Gusman's consult, and pain is adequately controlled. He is eating well. Family was at bedside. REVIEW OF SYSTEMS: Some pain in the right hip and the knee. PHYSICAL EXAMINATION: Vital Signs: Temperature is 97.9 degrees, pulse 63, blood pressure 153/62. HEENT: Within normal limits. Neck: Supple. No lymphadenopathy. Chest: Bilateral air entry. Cardiovascular: Heart sounds are regular. Belly is soft, nontender. INVESTIGATIONS: None reported. ASSESSMENT AND PLAN: 1. Right acetabular fracture, superior pubic ramus. Continue conservative management as per Dr. Gusman and pain control. 2. Continue present treatment out of the bed with physical therapy. I discussed with the family at bedside. He needs to go to rehab. Pickle Sorter consult on Sunday. Since the patient is eating well, I will slowly cut down the fluids to 50 mL/h. LEVEL OF DOCUMENTATION: 25 minutes. cc: Javi Nuñez MD
[2019-03-15] MEDS: DILAUDID IV PRN (00:46)
[2019-03-15] MEDS: HUMULIN R SUBQ SCH ×2 (06:01→21:14)
[2019-03-15] MEDS: ALTACE PO SCH (10:23)
[2019-03-15] MEDS: NORVASC PO SCH (10:24)
[2019-03-15] MEDS: NS 1,000 ML IV SCH (10:24)
[2019-03-15] MEDS: COREG PO SCH ×2 (10:24→21:14)
[2019-03-15] MEDS: CORDARONE PO SCH (10:24)
[2019-03-15] MEDS: GLUCOPHAGE XR PO SCH ×2 (10:24→21:14)
[2019-03-15] MEDS: XARELTO PO SCH (10:24)
[2019-03-15] MEDS: PRAVACHOL PO SCH (10:24)
[2019-03-15] MEDS ORDERED: PERCOCET-5 PO PRN (12:44)
--- NOTE | 2019-03-15 13:33 | PROGRESS NOTE ---
DATE: 03/15/2019 Vital signs are stable with a temperature of 97.5, heart rate 69, respirations 17, blood pressure 136/61, and O2 saturation 98% on 3 L nasal oxygen. Sugar is below 150. The patient is alert and oriented. IV pain medicine, Dilaudid, has been too strong with resulting confusion and somnolence. He has only mild pain related to his pelvic and right hip fracture. Chest is clear. There is a history of chronic deep venous thrombosis. He has osteoarthritis of the right knee and a contusion related to a fall last Sunday. There is a history of an abdominal aortic aneurysm, 3.7 cm, stable. He has a right iliac stent occluding with poor circulation of the right leg under the care of Dr. Pal. He is being treated with Norvasc and Coreg for hypertension. PLAN: Change pain medicine to p.o. Percocet. Rehab is planned at discharge. cc: MD Javi Taylor MD
[2019-03-16] MEDS: NS 1,000 ML IV SCH (05:48)
[2019-03-16] MEDS: HUMULIN R SUBQ SCH ×4 (06:04→22:37)
[2019-03-16] MEDS: GLUCOPHAGE XR PO SCH ×2 (08:43→22:37)
[2019-03-16] MEDS: PRAVACHOL PO SCH (08:43)
[2019-03-16] MEDS: ALTACE PO SCH (08:43)
[2019-03-16] MEDS: CORDARONE PO SCH (08:43)
[2019-03-16] MEDS: COREG PO SCH ×2 (08:43→22:37)
[2019-03-16] MEDS: NORVASC PO SCH (08:43)
[2019-03-16] MEDS: XARELTO PO SCH (08:43)
[2019-03-16] MEDS ORDERED: LASIX IV ONE (10:44)
--- NOTE | 2019-03-16 11:08 | PROGRESS NOTE ---
DATE: 03/16/2019 VITAL SIGNS: Temperature 98 degrees, heart rate 70, respirations 26, blood pressure 138/92, O2 saturation earlier in the morning of 95% on room air but currently on nasal oxygen. The patient is coughing and sounds a little wet on auscultation with a few scattered rhonchi bilaterally. Ankles reveal no edema. His pain is fairly well controlled with p.o. Percocet. Last BUN and creatinine on 03/13/2019 were 31 and 1.2 respectively. Sugar has been less than 150. PLAN: Continue current therapy. Lasix is given 20 mg IV, 1 dose. Also, nebulizer treatments with albuterol and Atrovent are ordered for t.i.d. cc: MD Javi Taylor MD
[2019-03-16] MEDS: DUONEB (A & A) INH SCH ×2 (15:45→22:01)
[2019-03-17] MEDS: HUMULIN R SUBQ SCH ×4 (06:08→21:30)
[2019-03-17] MEDS: COREG PO SCH ×2 (08:35→21:25)
[2019-03-17] MEDS: CORDARONE PO SCH (08:36)
[2019-03-17] MEDS: GLUCOPHAGE XR PO SCH ×2 (08:36→21:25)
[2019-03-17] MEDS: ALTACE PO SCH (08:36)
[2019-03-17] MEDS: NORVASC PO SCH (08:36)
[2019-03-17] MEDS: PRAVACHOL PO SCH (08:36)
[2019-03-17] MEDS: XARELTO PO SCH (08:36)
[2019-03-17] MEDS: DUONEB (A & A) INH SCH ×3 (09:30→21:38)
--- NOTE | 2019-03-17 18:47 | PROGRESS NOTE ---
DATE: 03/17/2019 SUBJECTIVE: The patient is a little bit confused, getting out of the confusion. Not having any hearing aid. Pain is better. Family is at bedside. OBJECTIVE: Vital signs: Temperature is 98. Vitals are stable. HEENT: Within normal limits. Chest: Bilateral air entry. Heart: Sounds are regular. INVESTIGATIONS: Blood sugars 190. ASSESSMENT AND PLAN: 1. Right acetabular fracture and superior pubic ramus fracture. Conservative management. 2. Paroxysmal atrial fibrillation, stable. 3. Pain is adequately controlled on OxyContin. 4. Continue present treatment. Out of the bed with physical therapy. 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 Waiting for placement LEVEL OF DOCUMENTATION: 25 minutes. cc: Javi Nuñez MD
[2019-03-18] MEDS: HUMULIN R SUBQ SCH ×4 (06:12→22:52)
--- NOTE | 2019-03-18 07:24 | Diag Imaging Result Doc PS360 ---
EXAM: CHEST-PORTABLE 03/18/2019 HISTORY: cough TECHNIQUE: AP portable upright at 0705 COMMENT: There is slightly worsened platelike atelectasis over the left base compared to 03/13/2019. Otherwise there has been no significant change. IMPRESSION: Minimal left lower lobe atelectasis. Electronically signed by Sin Reynoso 03/18/2019 7:21 AM
[2019-03-18] MEDS ORDERED: ULTRACET 37.5MG/325MG PO PRN (08:29)
[2019-03-18] MEDS: NORVASC PO SCH (08:40)
[2019-03-18] MEDS: PRAVACHOL PO SCH (08:40)
[2019-03-18] MEDS: CORDARONE PO SCH (08:40)
[2019-03-18] MEDS: COREG PO SCH ×2 (08:40→22:53)
[2019-03-18] MEDS: GLUCOPHAGE XR PO SCH ×2 (08:40→22:53)
[2019-03-18] MEDS: XARELTO PO SCH (08:40)
[2019-03-18] MEDS: ALTACE PO SCH (08:41)
[2019-03-18] MEDS: DUONEB (A & A) INH SCH ×3 (09:35→21:17)
--- NOTE | 2019-03-18 22:20 | PROGRESS NOTE ---
DATE: 03/18/2019 SUBJECTIVE: The patient has some more sedation with of Percocet which is discontinued. He is kind of aspirating and choking. Oxygenation is improved after stopping Percocet. He is on Ventimask. Chest x-ray stable. Family was at bedside. OBJECTIVE: Vital Signs: Stable. HEENT: Within normal limits. Gurgling. Chest: Bilateral air entry. Heart: Sounds are regular. Abdomen: Belly is soft, nontender. Good bowel sounds. Neurologic: No neurological deficits. ASSESSMENT AND PLAN: 1. Right hip acetabular fracture, stable. Waiting for placement. 2. Over sedation with Percocet. Discontinue. Changing to tramadol. 3. Atypical Parkinsonism. We will start with Sinemet prior to the discharge. Follow up chest x- ray stable. Out of the bed with physical therapy and continue bronchodilators and wean off oxygen and continue present treatment. Waiting for placement. LEVEL OF DOCUMENTATION: 25 minutes. cc: Javi Nuñez MD
[2019-03-19] MEDS: HUMULIN R SUBQ SCH ×2 (06:01→11:35)
[2019-03-19] MEDS: DUONEB (A & A) INH SCH ×2 (07:23→09:50)
[2019-03-19 09:05] VITALS: BP 147/56
--- NOTE | 2019-03-19 09:09 | DISCHARGE SUMMARY ---
ADMISSION DATE: 03/13/2019 DISCHARGE DATE: 03/19/2019 DISCHARGING DIAGNOSIS: Right hip fracture at the roof of acetabulum and superior pubic ramus. SECONDARY DIAGNOSES: 1. Right knee osteoarthritis. 2. Peripheral arterial disease with occluded right common iliac stent with a poor downstream. 3. Type 2 diabetes. 4. Abdominal aortic aneurysm, 4 cm. 5. Subcutaneous lipoma, left biceps muscle. 6. Coronary artery disease, status post right coronary artery stent, and circumflex. 7. Hyperlipidemia. 8. Hypertension. 9. Paroxysmal atrial fibrillation, status post cardioversion. 10. History of deep venous thrombosis in the left leg. 11. Vitamin D deficiency. 12. Spinal stenosis at L3-L4. 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 14. Mild peripheral neuropathy in both legs. CONSULTS: Dr. Gusman. BRIEF HISTORY: Please see the H and P that was done on 03/13/2019. In brief, he is a 78-year-old white gentleman who was admitted to the hospital directly from my office after he had a fall and sustained injury to the right hip, not able to ambulate. Initial x-rays were negative. The patient was in excruciating pain. HOSPITAL COURSE: CT findings revealing nondisplaced acetabular fracture and superior pubic ramus fracture. Dr. Gusman was consulted. He pretty much relegated to conservative management. Hospital course was prolonged due to the patient having a little bit of obtundation and confusion due to loss of hearing aid and Percocet causing over-sedation. He was rattling, and fluids were stopped. Followup chest x-ray was stable. At the request of the family, the patient is transferring to rehab at [facility]. Dr. Menendez is going to monitor there. Family also wants to start Sinemet empirically to see the response of his gait and to prevent falls. LABORATORY DATA DURING THIS ADMISSION: CBC: White cell count 6, hematocrit 33, platelets 118,000. Sodium 139, potassium 5.4, BUN 31, creatinine 1.2. IMAGING: CT findings as above. DISCHARGE INSTRUCTIONS: Initiate vaccination protocol. Metformin 500 p.o. b.i.d., Coreg 3.125 p.o. b.i.d., amlodipine 5 mg daily, pravastatin 40 daily, Cordarone 200 daily, Altace 5 mg daily, Xarelto 20 mg daily, Sinemet 25/250 one puff p.o. b.i.d., Ultracet p.r.n. for pain. Outpatient physical therapy. Living will. DO NOT RESUSCITATE. Dr. Menendez is going to follow up. cc: Javi Nuñez MD
[2019-03-19] MEDS: NORVASC PO SCH (10:17)
[2019-03-19] MEDS: PRAVACHOL PO SCH (10:17)
[2019-03-19] MEDS: CORDARONE PO SCH (10:17)
[2019-03-19] MEDS: GLUCOPHAGE XR PO SCH (10:17)
[2019-03-19] MEDS: ALTACE PO SCH (10:17)
[2019-03-19] MEDS: XARELTO PO SCH (10:17)
[2019-03-19] MEDS: COREG PO SCH (10:17)
== END 2019-03-19 13:11 | DRG 536 ==
LOC: 3N 16:55
PROVIDERS: ADMIT Internal Medicine; ATTEND Internal Medicine